=== PATIENT | male | born 1985 | race Caucasian/White ===

== ENCOUNTER 2020-11-05 03:00 | Emergency (ER) | payer OTHER ==
[~2020-11-05 03:00] MED LIST: NORVASC5 MG PO
[2020-11-05 03:31] LABS: BASOPHIL 0.6 % (0-2); HCT 49.5 % (42.0-52.0); HGB 17.4 g/dl (13.2-18.0); LYMPHOCYTE 12.3 % (15-48); MCH 34.5 pg (25.0-31.0); MCHC 35.2 g/dL (32.0-36.0); MONOCYTE 10.6 % (0-12); MPV 10.8 fL (6.0-9.5); NEUTROPHIL 75.1 % (41-80); NRBC 0; PLT 159 K/uL (150-400); RBC 5.05 M/uL (4.70-6.00); RDW 12.4 % (11.5-14.0); WBC 7.7 K/uL (4.0-10.5)
[2020-11-05 03:36] LABS: INR 1.06 (0.9-1.2); PROTHROMBIN TIME 13.1 SECONDS (11.4-13.6); PTT 27.7 SECONDS (22.2-34.7)
[2020-11-05 03:38] LABS: D-DIMER 0.47 ug/mLFEU (0.00-0.41)
[2020-11-05 03:49] LABS: PRO-BNP 57 pg/mL (<125)
[2020-11-05 03:52] LABS: ALBUMIN 4.4 g/dL (3.4-5.0); BILIRUBIN - TOTAL 0.7 mg/dL (0.2-1.0); BUN/CREAT RATIO (CALC) 11.8 RATIO; C-REACTIVE PROTEIN 0.4 mg/dL (<=0.90); CREATININE 0.76 mg/dL (0.67-1.17); FT4 (FREE T4) 1.2 ng/dL (0.76-1.46); GLOBULIN (CALCULATION) 4.3 g/dL; MAGNESIUM 1.3 mg/dL (1.8-2.4); POTASSIUM 3.1 mmol/L (3.5-5.1); TOTAL PROTEIN 8.7 g/dL (6.4-8.2)
[2020-11-05 05:07] LABS: AMPHETAMINES NEGATIVE (NEGATIVE); BARBITURATES NEGATIVE (NEGATIVE); BILIRUBIN NEGATIVE (NEGATIVE); BLOOD NEGATIVE Ery/uL (NEGATIVE); CLARITY CLEAR (CLEAR); COLOR YELLOW (YELLOW); ECSTASY (MDMA) NEGATIVE (NEGATIVE); GLUCOSE (U) NORMAL (NORMAL); LEUKOCYTES NEGATIVE Leu/uL (NEGATIVE); MARIJUANA (THC) NEGATIVE (NEGATIVE); METHADONE NEGATIVE (NEGATIVE); NITRITE NEGATIVE (NEGATIVE); OPIATES NEGATIVE (NEGATIVE); OXYCODONE NEGATIVE (NEGATIVE); PROTEIN TRACE (LOW) mg/dL (NEGATIVE); SPECIFIC GRAVITY >=1.030 (1.001-1.030)
== END 2020-11-05 07:05 | disposition home or self-care (01) ==
LOC: FER 03:00
PROVIDERS: Emergency Medicine Emergency Medical Services
DX: R07.89 Other chest pain (principal); E87.6 Hypokalemia; E83.42 Hypomagnesemia; E86.0 Dehydration; R06.02 Shortness of breath; I10 Essential (primary) hypertension; F17.210 Nicotine dependence, cigarettes, uncomplicated; Z79.899 Other long term (current) drug therapy
CPT/HCPCS: 36415; 71045; 80053; 80305; 81003; 82550; 83735; 83880; 84439; 84443; 84484; 85025; 85379; 85610; 85730; 86140; 93005; J3475; J7030; J7120